=== PATIENT | male | born 1950 | race African-American/Black ===

== ENCOUNTER 2017-06-15 00:42 | Emergency (ER) | payer MEDICARE, MEDICAID ==
[~2017-06-15] VITALS: Ht 182.9 cm; Wt 105.0 kg
[~2017-06-15 00:42] MED LIST: ACET-2178 PO; AMLO2.5T45 PO; CHOL100046 PO; CLON0.1T PO; CLOP75TA33 PO; DOCU-138 PO; FAMO40TA70 PO; HYDR-523 PO; LOSA100T14 PO; METO-385 PO; MIRT30TA PO; TRAV2.5D EACHEYE
[2017-06-15] MEDS ORDERED: SODIUM CHLORIDE 0.9% 1,000 ML IV ONE (01:16)
[2017-06-15 01:57] LABS: BASOPHILS % 1.1 % (0.0-2.0); EOSINOPHILS % 6.6 % (0.0-5.0); HEMATOCRIT. 43.4 % (42.0-52.0); HEMOGLOBIN. 14.3 g/dL (14.0-18.0); LYMPHOCYTES % 29.1 % (20.0-50.0); MEAN CORPUSCULAR HEMOGLOBIN 26.5 pg (28.0-32.0); MEAN CORPUSCULAR VOLUME 80.3 fL (80.0-94.0); MEAN PLATELET VOLUME 8.2 fl (7.4-10.4); MONOCYTES % 12.5 % (2.0-8.0); NEUTROPHILS % 50.7 % (40.0-76.0); PLATELET 170 x1000/uL (130-400); RED CELL DISTRIBUTION WIDTH 15.4 % (11.6-14.6)
[2017-06-15 02:03] LABS: CHLORIDE 105 mEq/L (98-107)
[2017-06-15 02:05] LABS: INR 1.1; PARTIAL THROMBOPLASTIN TIME 27.3 sec (23.4-31.0)
[2017-06-15 07:05] VITALS: BP 148/89
== END 2017-06-15 07:22 ==
LOC: ER 00:42
DX: K62.5 Hemorrhage of anus and rectum (principal); K21.9 Gastro-esophageal reflux disease without esophagitis; E11.9 Type 2 diabetes mellitus without complications; I10 Essential (primary) hypertension; Z86.73 Personal history of transient ischemic attack (TIA), and cerebral infarction without residual deficits; Z79.899 Other long term (current) drug therapy
CPT/HCPCS: 36415; 80053; 83605; 85025; 85610; 85730; 86850; 86900; 86901; 99284; J7030

== ENCOUNTER 2019-10-10 10:51 | Inpatient (IN) | payer MEDICARE, MEDICAID ==
[~2019-10-10] VITALS: Ht 175.3 cm; Wt 77.1 kg
[~2019-10-10 10:51] MED LIST changes: -ACET-2178 PO; -CLON0.1T PO; -CLOP75TA33 PO; -FAMO40TA70 PO; +FERR325T23 PO; +INSU100C6 SQ; +IPRA3AMP9 NEB; -LOSA100T14 PO; +LOSA100T32 PO; +METF-414 MT; -METO-385 PO; +METO25TA6 MT; +POLY17PO3 MT; +SITA100T11 MT; +TOPUD PO
[2019-10-10 14:31] LABS: HEMATOCRIT. 30.4 % (42.0-52.0); HEMOGLOBIN. 9.5 g/dL (14.0-18.0); MEAN CORPUSCULAR HEMOGLOBIN 19.8 pg (28.0-32.0); MEAN CORPUSCULAR VOLUME 63.4 fL (80.0-94.0); MEAN PLATELET VOLUME 7.8 fl (7.4-10.4); PLATELET 558 x1000/uL (130-400); RED CELL DISTRIBUTION WIDTH 22.8 % (11.6-14.6)
[2019-10-10 14:36] LABS: CHLORIDE 102 mEq/L (98-107); PROTHROMBIN TIME 11.1 sec (9.6-11.0)
[2019-10-10 14:46] LABS: CLARITY URINE TURBID (CLEAR); COLOR URINE YELLOW (YELLOW); KETONES URINE NEGATIVE (NEGATIVE); LEUKOCYTE ESTERASE URINE TRACE (NEGATIVE); NITRITE URINE NEGATIVE (NEGATIVE); OCCULT BLOOD URINE 1+ (NEGATIVE); PROTEIN URINE NEGATIVE (NEGATIVE); SPECIFIC GRAVITY URINE 1.015 (1.005-1.030); UROBILINOGEN URINE 0.2 E.U./dL (0.2-1.0)
[2019-10-10 15:05] LABS: *AMPHETAMINES SCREEN URINE NEGATIVE (NEGATIVE); *BARBITURATES SCREEN URINE NEGATIVE (NEGATIVE); *BENZODIAZEPINES SCREEN URINE NEGATIVE (NEGATIVE); *COCAINE SCREEN URINE NEGATIVE (NEGATIVE)
[2019-10-10 15:06] LABS: CANNABINOID URINE SCREEN NEGATIVE (NEGATIVE); METHADONE URINE SCREEN NEGATIVE (NEGATIVE); OPIATES URINE SCREEN NEGATIVE (NEGATIVE); PHENCYCLIDINE URINE SCREEN NEGATIVE (NEGATIVE)
[2019-10-10 15:43] LABS: PLATELET ESTIMATE INCREASED
[2019-10-10] MEDS ORDERED: SODIUM POLYSTYRENE SULFONATE 15 G/60 ML BOT PO ONE (17:30)
[2019-10-11] MEDS ORDERED: LORAZEPAM 2MG/ML CPJ IV PRN
[2019-10-11] MEDS ORDERED: ACETAMINOPHEN 325MG TABLET PO PRN
[2019-10-11] MEDS ORDERED: ONDANSETRON HCL 4MG/2ML INJ IV PRN
[2019-10-11 01:45] VITALS: BP 103/73
[2019-10-11 04:00] VITALS: BP 119/77
[2019-10-11] MEDS ORDERED: DEXTROSE 50% WATER 50ML SYRINGE IV PRN (07:45)
[2019-10-11 07:56] LABS: BASOPHILS % 1.1 % (0.0-2.0); EOSINOPHILS % 2.3 % (0.0-5.0); HEMATOCRIT. 28.8 % (42.0-52.0); HEMOGLOBIN. 9.1 g/dL (14.0-18.0); LYMPHOCYTES % 25.2 % (20.0-50.0); MEAN CORPUSCULAR HEMOGLOBIN 19.8 pg (28.0-32.0); MEAN CORPUSCULAR VOLUME 62.9 fL (80.0-94.0); MEAN PLATELET VOLUME 6.7 fl (7.4-10.4); MONOCYTES % 9.1 % (2.0-8.0); NEUTROPHILS % 62.3 % (40.0-76.0); PLATELET 536 x1000/uL (130-400); RED BLOOD CELL COUNT 4.58 mill/uL (4.7-6.1); RED CELL DISTRIBUTION WIDTH 22.6 % (11.6-14.6)
[2019-10-11 08:00] VITALS: BP 106/70
[2019-10-11 08:04] LABS: CHLORIDE 102 mEq/L (98-107)
[2019-10-11] MEDS: BLOOD SUGAR DIAGNOSTIC STRIP TEST SCH ×4 (08:20→20:31)
[2019-10-11] MEDS: AMLODIPINE 5MG TABLET PO SCH (09:00)
[2019-10-11] MEDS: METFORMIN HCL 500MG TABLET PO SCH ×2 (09:24→18:09)
[2019-10-11] MEDS: INSULIN LISPRO 100 UNITS/ML SUBCUT SCH ×4 (09:26→20:31)
[2019-10-11 12:00] VITALS: BP 115/70
[2019-10-11] MEDS: CEFTRIAXONE 1 G PREMIX 50 ML IV SCH (15:13)
[2019-10-11] MEDS: METRONIDAZOLE 500 MG PREMIX 100 ML IV SCH (16:10)
[2019-10-11] MEDS: HYDROCODONE/ACETAMINOPHEN 5/325MG TABLET PO PRN (18:51)
[2019-10-11 20:00] VITALS: BP 95/72
[2019-10-12] VITALS: BP 131/74
[2019-10-12] MEDS: METRONIDAZOLE 500 MG PREMIX 100 ML IV SCH ×3 (00:14→15:35)
[2019-10-12 04:00] VITALS: BP 109/64
[2019-10-12 07:51] LABS: CHLORIDE 102 mEq/L (98-107)
[2019-10-12 07:57] LABS: HEMATOCRIT. 27.6 % (42.0-52.0); HEMOGLOBIN. 8.9 g/dL (14.0-18.0); MEAN CORPUSCULAR HEMOGLOBIN 20.1 pg (28.0-32.0); MEAN CORPUSCULAR VOLUME 62.6 fL (80.0-94.0); PLATELET 509 x1000/uL (130-400); RED BLOOD CELL COUNT 4.41 mill/uL (4.7-6.1); RED CELL DISTRIBUTION WIDTH 23.6 % (11.6-14.6)
[2019-10-12] MEDS: INSULIN LISPRO 100 UNITS/ML SUBCUT SCH ×4 (08:10→20:24)
[2019-10-12] MEDS: BLOOD SUGAR DIAGNOSTIC STRIP TEST SCH ×4 (08:33→20:24)
[2019-10-12 08:55] VITALS: BP 113/76
[2019-10-12] MEDS: AMLODIPINE 5MG TABLET PO SCH (09:00)
[2019-10-12] MEDS: METFORMIN HCL 500MG TABLET PO SCH ×2 (09:23→18:16)
[2019-10-12 10:37] LABS: PLATELET ESTIMATE INCREASED
[2019-10-12 12:18] VITALS: BP 109/70
[2019-10-12] MEDS: CEFTRIAXONE 1 G PREMIX 50 ML IV SCH (15:35)
[2019-10-12 16:42] VITALS: BP 108/75
[2019-10-12 20:00] VITALS: BP 122/76
[2019-10-12] MEDS: HYDROCODONE/ACETAMINOPHEN 5/325MG TABLET PO PRN (20:24)
[2019-10-13] VITALS (7 sets, daily range): BP systolic 93–157; BP diastolic 52–77
[2019-10-13] MEDS: METRONIDAZOLE 500 MG PREMIX 100 ML IV SCH ×3 (01:07→18:30)
[2019-10-13 04:44] LABS: HEMATOCRIT. 26.8 % (42.0-52.0); HEMOGLOBIN. 8.5 g/dL (14.0-18.0); MEAN CORPUSCULAR HEMOGLOBIN 20.1 pg (28.0-32.0); MEAN CORPUSCULAR VOLUME 63.3 fL (80.0-94.0); MEAN PLATELET VOLUME 8.5 fl (7.4-10.4); PLATELET 482 x1000/uL (130-400); RED BLOOD CELL COUNT 4.24 mill/uL (4.7-6.1)
[2019-10-13 04:50] LABS: CHLORIDE 102 mEq/L (98-107)
[2019-10-13] MEDS: BLOOD SUGAR DIAGNOSTIC STRIP TEST SCH ×4 (06:55→21:25)
[2019-10-13] MEDS: INSULIN LISPRO 100 UNITS/ML SUBCUT SCH ×4 (07:45→21:00)
[2019-10-13] MEDS: METFORMIN HCL 500MG TABLET PO SCH ×2 (08:45→17:39)
[2019-10-13] MEDS: AMLODIPINE 5MG TABLET PO SCH (08:46)
[2019-10-13] MEDS: HYDROCODONE/ACETAMINOPHEN 5/325MG TABLET PO PRN (11:35)
[2019-10-13 13:30] LABS: PLATELET ESTIMATE INCREASED
[2019-10-13] MEDS: METOPROLOL TARTRATE 25MG TABLET PO SCH ×2 (13:40→21:00)
[2019-10-13] MEDS ORDERED: MORPHINE SULFATE 2 MG/ML CPJ (NOT FOR IM USE) IV PRN (15:15)
[2019-10-13] MEDS: CEFTRIAXONE 1 G PREMIX 50 ML IV SCH (16:49)
[2019-10-14] VITALS (7 sets, daily range): BP systolic 101–113; BP diastolic 58–70
[2019-10-14] MEDS: METRONIDAZOLE 500 MG PREMIX 100 ML IV SCH ×3 (01:10→18:07)
[2019-10-14 06:15] LABS: HEMATOCRIT. 28.6 % (42.0-52.0); MEAN CORPUSCULAR HEMOGLOBIN 20.2 pg (28.0-32.0); MEAN CORPUSCULAR VOLUME 63.9 fL (80.0-94.0); MEAN PLATELET VOLUME 8.2 fl (7.4-10.4); PLATELET 421 x1000/uL (130-400); RED BLOOD CELL COUNT 4.47 mill/uL (4.7-6.1); RED CELL DISTRIBUTION WIDTH 23.2 % (11.6-14.6)
[2019-10-14 06:57] LABS: CHLORIDE 103 mEq/L (98-107)
[2019-10-14] MEDS: BLOOD SUGAR DIAGNOSTIC STRIP TEST SCH ×3 (07:32→18:04)
[2019-10-14] MEDS: INSULIN LISPRO 100 UNITS/ML SUBCUT SCH ×3 (07:32→17:50)
[2019-10-14] MEDS ORDERED: DOCUSATE SODIUM 250MG CAPSULE PO SCH (09:00)
[2019-10-14] MEDS: METFORMIN HCL 500MG TABLET PO SCH ×2 (09:44→18:07)
[2019-10-14] MEDS: METOPROLOL TARTRATE 25MG TABLET PO SCH (09:44)
[2019-10-14] MEDS: HYDROCODONE/ACETAMINOPHEN 5/325MG TABLET PO PRN (09:45)
[2019-10-14] MEDS: CEFTRIAXONE 1 G PREMIX 50 ML IV SCH (16:20)
[2019-10-14 16:56] LABS: PLATELET ESTIMATE INCREASED
== END 2019-10-14 21:30 | DRG 947 ==
LOC: ER 11:04 → EDBEDREQ 17:32 → EDBEDREQTM 17:32 → MICUSO 23:26 → 7WST 10-11 01:37 → 6WST 10-12 21:35
PROVIDERS: ADMIT Family Medicine Adult Medicine; ATTEND Family Medicine Adult Medicine
DX: G89.3 Neoplasm related pain (acute) (chronic) (principal); E43 Unspecified severe protein-calorie malnutrition; C18.6 Malignant neoplasm of descending colon; E87.1 Hypo-osmolality and hyponatremia; I69.351 Hemiplegia and hemiparesis following cerebral infarction affecting right dominant side; B19.20 Unspecified viral hepatitis C without hepatic coma; D72.829 Elevated white blood cell count, unspecified; E11.9 Type 2 diabetes mellitus without complications; Z66 Do not resuscitate; R00.0 Tachycardia, unspecified; I49.3 Ventricular premature depolarization; D50.9 Iron deficiency anemia, unspecified; D47.3 Essential (hemorrhagic) thrombocythemia; F03.90 Unspecified dementia, unspecified severity, without behavioral disturbance, psychotic disturbance, mood disturbance, and anxiety; E87.5 Hyperkalemia; K21.9 Gastro-esophageal reflux disease without esophagitis; I10 Essential (primary) hypertension; Z79.4 Long term (current) use of insulin; Z68.25 Body mass index [BMI] 25.0-25.9, adult; Z79.899 Other long term (current) drug therapy; Z03.818 Encounter for observation for suspected exposure to other biological agents ruled out; Z74.01 Bed confinement status
CPT/HCPCS: 36415; 71045; 74176; 76870; 80048; 80053; 80305; 81003; 82140; 82248; 82378; 82962; 83036; 83735; 83880; 84484; 85025; 85651; 93005; 93306; 93976; 99291; J0696; J1815; J2270; J3490; U0003-CS

== ENCOUNTER 2019-11-11 06:01 | Inpatient (IN) | payer MEDICARE, MEDICAID ==
[~2019-11-11] VITALS: Ht 180.3 cm; Wt 86.6 kg
[2019-11-11 07:03] LABS: BASOPHILS % 0.8 % (0.0-2.0); CHLORIDE 111 mEq/L (98-107); EOSINOPHILS % 1.3 % (0.0-5.0); HEMATOCRIT. 27.7 % (42.0-52.0); HEMOGLOBIN. 8.9 g/dL (14.0-18.0); LYMPHOCYTES % 21.3 % (20.0-50.0); MEAN CORPUSCULAR HEMOGLOBIN 21.4 pg (28.0-32.0); MEAN CORPUSCULAR VOLUME 66.4 fL (80.0-94.0); MEAN PLATELET VOLUME 7.5 fl (7.4-10.4); MONOCYTES % 6.9 % (2.0-8.0); NEUTROPHILS % 69.7 % (40.0-76.0); PLATELET 453 x1000/uL (130-400); RED BLOOD CELL COUNT 4.17 mill/uL (4.7-6.1); RED CELL DISTRIBUTION WIDTH 24.6 % (11.6-14.6)
[2019-11-11] MEDS ORDERED: SODIUM CHLORIDE 0.9% 1,000 ML IV ONE (07:09)
[2019-11-11] MEDS ORDERED: CEFTRIAXONE 1 G PREMIX 50 ML IV ONE (07:15)
[2019-11-11] MEDS ORDERED: SODIUM CHLORIDE 0.9% 1000ML BAG (SEPSIS BOLUS) IV ONE (07:45)
[2019-11-11 08:18] LABS: CLARITY URINE CLOUDY (CLEAR); COLOR URINE YELLOW (YELLOW); KETONES URINE NEGATIVE (NEGATIVE); LEUKOCYTE ESTERASE URINE 3+ (NEGATIVE); NITRITE URINE POSITIVE (NEGATIVE); OCCULT BLOOD URINE 2+ (NEGATIVE); PROTEIN URINE NEGATIVE (NEGATIVE); SPECIFIC GRAVITY URINE 1.011 (1.005-1.030); UROBILINOGEN URINE 0.2 E.U./dL (0.2-1.0)
[2019-11-11 10:19] LABS: PLATELET ESTIMATE INCREASED
[2019-11-11] MEDS ORDERED: ACETAMINOPHEN 325MG TABLET PO PRN (11:30)
[2019-11-11] MEDS ORDERED: ONDANSETRON HCL 4MG/2ML INJ IV PRN (11:30)
[2019-11-11] MEDS ORDERED: DEXTROSE 50% WATER 50ML SYRINGE IV PRN (11:30)
[2019-11-11] MEDS ORDERED: PIPERACILLIN/TAZ 3.375G PREMIX 50 ML IV NR (12:25)
[2019-11-11] MEDS: SODIUM CHLORIDE 0.9% 1,000 ML IV SCH (12:35)
[2019-11-11] MEDS ORDERED: PIPERACILLIN/TAZOBACTAM 3.375 G in DEXT 5% WATER 100 ML IV SCH (18:00)
[2019-11-11] MEDS: BLOOD SUGAR DIAGNOSTIC STRIP TEST SCH ×2 (18:29→18:33)
[2019-11-11] MEDS: INSULIN LISPRO 100 UNITS/ML SUBCUT SCH ×3 (18:29→21:00)
[2019-11-12] MEDS: BLOOD SUGAR DIAGNOSTIC STRIP TEST SCH ×5 (00:19→21:46)
[2019-11-12 01:10] VITALS: BP 121/79
[2019-11-12 01:55] VITALS: BP 121/79
[2019-11-12] MEDS ORDERED: METF-414 MT (02:51)
[2019-11-12] MEDS ORDERED: CLON0.1T MT (02:52)
[2019-11-12] MEDS ORDERED: TRAV2.5D EACHEYE (02:54)
[2019-11-12 03:02] VITALS: BP 121/79
[2019-11-12 04:00] VITALS: BP 132/78
[2019-11-12] MEDS: SODIUM CHLORIDE 0.9% 1,000 ML IV SCH (04:27)
[2019-11-12] MEDS: PIPERACILLIN/TAZOBACTAM 3.375 G in DEXT 5% WATER 100 ML IV SCH ×4 (04:27→21:50)
[2019-11-12 05:49] LABS: CHLORIDE 119 mEq/L (98-107)
[2019-11-12 06:01] LABS: LDL CHOLESTEROL 76 mg/dL (5-100)
[2019-11-12 06:03] LABS: HDL CHOLESTEROL 32 mg/dL (40-59); TOTAL IRON BINDING CAPACITY 155 ug/dL (250-450)
[2019-11-12 06:14] LABS: VITAMIN B12 SERUM 821 pg/mL (211-911)
[2019-11-12 06:25] LABS: HEMOGLOBIN. 7.7 g/dL (14.0-18.0); MEAN CORPUSCULAR HEMOGLOBIN 21.2 pg (28.0-32.0); MEAN CORPUSCULAR VOLUME 66.3 fL (80.0-94.0); MEAN PLATELET VOLUME 8.2 fl (7.4-10.4); PLATELET 428 x1000/uL (130-400); RED BLOOD CELL COUNT 3.62 mill/uL (4.7-6.1); RED CELL DISTRIBUTION WIDTH 24.1 % (11.6-14.6)
[2019-11-12 08:00] VITALS: BP 114/72
[2019-11-12] MEDS: INSULIN LISPRO 100 UNITS/ML SUBCUT SCH ×4 (08:10→21:00)
[2019-11-12] MEDS ORDERED: FERROUS SULFATE 325MG TABLET PO SCH (11:15)
[2019-11-12] MEDS ORDERED: POTASSIUM CHLORIDE 20MEQ TABLET SR PO NR (11:15)
[2019-11-12] MEDS: MAGNESIUM CITRATE 300ML SOLUTION PO SCH ×2 (16:46→17:35)
[2019-11-12] MEDS ORDERED: ERYTHROMYCIN 250MG TABLET PO SCH (18:00)
[2019-11-12] MEDS: NEOMYCIN 500MG TABLET PO SCH ×3 (18:10→21:53)
[2019-11-12] MEDS: ERYTHROMYCIN 250MG CAPSULE DR PO SCH ×3 (18:11→21:54)
[2019-11-12 20:00] VITALS: BP 115/73
[2019-11-12 22:30] LABS: PLATELET ESTIMATE INCREASED
[2019-11-13] VITALS: BP_SYST 114; BP_SYST 159; BP_DIAS 102; BP_DIAS 71
[2019-11-13 04:00] VITALS: BP 112/56
[2019-11-13] MEDS: PIPERACILLIN/TAZOBACTAM 3.375 G in DEXT 5% WATER 100 ML IV SCH ×4 (04:18→21:35)
[2019-11-13 06:50] LABS: CHLORIDE 119 mEq/L (98-107)
[2019-11-13 06:53] LABS: HEMATOCRIT. 23.7 % (42.0-52.0); HEMOGLOBIN. 7.5 g/dL (14.0-18.0); MEAN CORPUSCULAR VOLUME 66.4 fL (80.0-94.0); MEAN PLATELET VOLUME 7.3 fl (7.4-10.4); PLATELET 423 x1000/uL (130-400); RED BLOOD CELL COUNT 3.57 mill/uL (4.7-6.1); RED CELL DISTRIBUTION WIDTH 23.7 % (11.6-14.6)
[2019-11-13] MEDS: INSULIN LISPRO 100 UNITS/ML SUBCUT SCH ×4 (07:04→22:20)
[2019-11-13] MEDS ORDERED: BUPIVACAINE HCL 0.5% (5MG/ML) 50ML ONE (07:46)
[2019-11-13] MEDS ORDERED: SKIN ADHESIVE 0.7 GM EA TOP ONE (07:46)
[2019-11-13] MEDS ORDERED: BACITRACIN 50,000 UNITS/VIAL ONE ×2 (07:46→10:09)
[2019-11-13 07:55] VITALS: BP 118/72
[2019-11-13] MEDS: BLOOD SUGAR DIAGNOSTIC STRIP TEST SCH ×4 (08:14→21:35)
[2019-11-13] MEDS ORDERED: FENTANYL CITRATE/PF 50MCG/ML 2ML VIAL ONE (08:46)
[2019-11-13] MEDS ORDERED: PROPOFOL 200MG/20ML VIAL IV ONE (08:46)
[2019-11-13] MEDS ORDERED: MIDAZOLAM HCL 2 MG/2 ML VIAL ONE (08:46)
[2019-11-13] MEDS ORDERED: DEXAMETHASONE 4MG/ML 1ML VIAL ONE (08:47)
[2019-11-13] MEDS ORDERED: EPHEDRINE SULFATE 50MG/ML VIAL ONE (08:47)
[2019-11-13] MEDS ORDERED: ROCURONIUM BROMIDE 10MG/ML VIAL 5ML IV ONE (08:57)
[2019-11-13] MEDS ORDERED: SUCCINYLCHOLINE CHLORIDE 200MG/10ML IV ONE (08:57)
[2019-11-13] MEDS ORDERED: PHENYLEPHRINE HCL 10 MG/ML 1ML (IV VIAL) IV ONE (08:59)
[2019-11-13] MEDS ORDERED: POTASSIUM CHLORIDE INJ 40 MEQ in DEXT 5% WATER 250 ML IV ONE (09:00)
[2019-11-13] MEDS ORDERED: ACETAMINOPHEN 650MG SUPP PR PRN (09:00)
[2019-11-13 09:24] LABS: PLATELET ESTIMATE INCREASED
[2019-11-13] MEDS ORDERED: ONDANSETRON HCL 4MG/2ML INJ ONE (10:12)
[2019-11-13] MEDS: FERROUS SULFATE 300MG/5ML UDC PO SCH ×3 (12:50→17:40)
[2019-11-13] MEDS: DEXT 5%/0.45% NACL KCL 20MEQ/L 1,000 ML IV SCH ×2 (15:32→20:29)
[2019-11-13] MEDS: FAMOTIDINE 20MG/2ML VIAL IV SCH (15:32)
[2019-11-13 16:14] LABS: CREATINE KINASE 53 IU/L (39-308)
[2019-11-13 16:15] LABS: CHLORIDE 122 mEq/L (98-107)
[2019-11-13 16:24] LABS: HEMATOCRIT. 34.1 % (42.0-52.0); MEAN CORPUSCULAR HEMOGLOBIN 23.5 pg (28.0-32.0); MEAN CORPUSCULAR VOLUME 73.1 fL (80.0-94.0); MEAN PLATELET VOLUME 7.6 fl (7.4-10.4); PLATELET 438 x1000/uL (130-400); RED BLOOD CELL COUNT 4.67 mill/uL (4.7-6.1); RED CELL DISTRIBUTION WIDTH 25.7 % (11.6-14.6)
[2019-11-13 16:30] VITALS: BP 124/80
[2019-11-13] MEDS ORDERED: METOPROLOL TARTRATE 5MG/5ML VIAL IV NR (16:51)
[2019-11-13] MEDS: MORPHINE SULFATE 2 MG/ML CPJ (NOT FOR IM USE) IV PRN ×2 (16:54→22:19)
[2019-11-13 17:15] LABS: PLATELET ESTIMATE NORMAL
[2019-11-13] MEDS ORDERED: POTASSIUM CHLORIDE 20MEQ TABLET SR PO SCH (18:00)
[2019-11-13] MEDS: SODIUM CHLORIDE 0.9% 250 ML IV NR ×2 (18:08→20:28)
[2019-11-13 20:57] VITALS: BP 113/79
[2019-11-14 00:47] VITALS: BP 126/80
[2019-11-14] MEDS: MORPHINE SULFATE 2 MG/ML CPJ (NOT FOR IM USE) IV PRN ×2 (02:05→05:58)
[2019-11-14 04:00] VITALS: BP 122/80
[2019-11-14] MEDS: PIPERACILLIN/TAZOBACTAM 3.375 G in DEXT 5% WATER 100 ML IV SCH ×4 (04:37→21:09)
[2019-11-14 05:47] LABS: CHLORIDE 121 mEq/L (98-107)
[2019-11-14] MEDS: DEXT 5%/0.45% NACL KCL 20MEQ/L 1,000 ML IV SCH (06:05)
[2019-11-14 06:19] LABS: HEMATOCRIT. 30.9 % (42.0-52.0); HEMOGLOBIN. 9.9 g/dL (14.0-18.0); MEAN CORPUSCULAR HEMOGLOBIN 23.1 pg (28.0-32.0); MEAN CORPUSCULAR VOLUME 72.4 fL (80.0-94.0); MEAN PLATELET VOLUME 7.7 fl (7.4-10.4); PLATELET 332 x1000/uL (130-400); RED BLOOD CELL COUNT 4.27 mill/uL (4.7-6.1); RED CELL DISTRIBUTION WIDTH 26.1 % (11.6-14.6)
[2019-11-14] MEDS: BLOOD SUGAR DIAGNOSTIC STRIP TEST SCH ×4 (06:46→20:21)
[2019-11-14 08:05] VITALS: BP 106/67
[2019-11-14] MEDS: FERROUS SULFATE 300MG/5ML UDC PO SCH ×3 (08:54→18:14)
[2019-11-14] MEDS: INSULIN LISPRO 100 UNITS/ML SUBCUT SCH ×4 (08:54→21:12)
[2019-11-14] MEDS: FAMOTIDINE 20MG/2ML VIAL IV SCH (08:55)
[2019-11-14 10:29] LABS: BG BASE EXCESS -8.1 mmol/L (-2.0-2.0); BG CARBOXYHEMOGLOBIN 0.6 % (0.5-1.5); BG DEOXYHEMOGLOBIN 4.7 % (0.0-5.0); BG FRACTION INSPIRED OXYGEN 21; BG HCO3 ACT 16.1 mmol/L (22.0-26.0); BG METHEMOGLOBIN 0.3 % (0.0-1.5); BG OXYGEN SATURATION 95.3 % (92.0-98.5); BG OXYHEMOGLOBIN 94.4 % (94.0-97.0); BG PCO2 28.5 mmHg (35.0-45.0); BG PH 7.369 (7.350-7.450); BG PO2 79.5 mmHg (75.0-100.0); BG SAMPLE SITE RIGHT RADIAL; BG TOTAL HEMOGLOBIN 9.8 g/dL (12.0-18.0); BG VENT MODE ROOM AIR
[2019-11-14 10:45] LABS: PLATELET ESTIMATE NORMAL
[2019-11-14] MEDS ORDERED: METOPROLOL TARTRATE 5MG/5ML VIAL IV PRN (10:45)
[2019-11-14] MEDS ORDERED: CEPH-569 MT (11:17)
[2019-11-14 12:05] VITALS: BP 108/67
[2019-11-14] MEDS: DEXT 5%/0.45% NACL 1000ML 1,000 ML IV SCH ×2 (12:05→23:28)
[2019-11-14] MEDS: MORPHINE SULFATE 4 MG/ML CPJ (NOT FOR IM USE) IV PRN ×2 (12:23→16:02)
[2019-11-14 16:00] VITALS: BP 101/60
[2019-11-14 20:00] VITALS: BP 96/64
[2019-11-15] VITALS: BP 97/61
[2019-11-15] MEDS: PIPERACILLIN/TAZOBACTAM 3.375 G in DEXT 5% WATER 100 ML IV SCH ×4 (03:58→21:00)
[2019-11-15 04:00] VITALS: BP 110/63
[2019-11-15] MEDS: BLOOD SUGAR DIAGNOSTIC STRIP TEST SCH ×4 (06:47→20:44)
[2019-11-15 07:18] LABS: CHLORIDE 120 mEq/L (98-107)
[2019-11-15 07:38] LABS: BASOPHILS % 0.2 % (0.0-2.0); HEMATOCRIT. 27.4 % (42.0-52.0); HEMOGLOBIN. 8.7 g/dL (14.0-18.0); LYMPHOCYTES % 17.2 % (20.0-50.0); MEAN CORPUSCULAR HEMOGLOBIN 22.9 pg (28.0-32.0); MEAN CORPUSCULAR VOLUME 71.8 fL (80.0-94.0); MEAN PLATELET VOLUME 7.8 fl (7.4-10.4); MONOCYTES % 3.8 % (2.0-8.0); NEUTROPHILS % 78.8 % (40.0-76.0); PLATELET 248 x1000/uL (130-400); RED BLOOD CELL COUNT 3.81 mill/uL (4.7-6.1); RED CELL DISTRIBUTION WIDTH 25.6 % (11.6-14.6)
[2019-11-15 08:00] VITALS: BP 100/56
[2019-11-15] MEDS: FAMOTIDINE 20MG/2ML VIAL IV SCH (09:05)
[2019-11-15] MEDS: FERROUS SULFATE 300MG/5ML UDC PO SCH ×3 (09:05→16:49)
[2019-11-15] MEDS: INSULIN LISPRO 100 UNITS/ML SUBCUT SCH ×4 (09:07→20:52)
[2019-11-15 12:00] VITALS: BP 131/82
[2019-11-15] MEDS: DEXT 5%/0.45% NACL 1000ML 1,000 ML IV SCH (12:55)
[2019-11-15] MEDS: MORPHINE SULFATE 4 MG/ML CPJ (NOT FOR IM USE) IV PRN ×2 (13:42→20:53)
[2019-11-15 16:00] VITALS: BP 118/64
[2019-11-15] MEDS: IRON SUCROSE COMPLEX 100 MG/5 ML ML IV SCH (20:31)
[2019-11-15 20:32] VITALS: BP 116/72
[2019-11-16 00:29] VITALS: BP 113/61
[2019-11-16] MEDS: DEXT 5%/0.45% NACL 1000ML 1,000 ML IV SCH ×2 (01:56→15:39)
[2019-11-16] MEDS: PIPERACILLIN/TAZOBACTAM 3.375 G in DEXT 5% WATER 100 ML IV SCH ×4 (03:58→21:11)
[2019-11-16 04:00] VITALS: BP 130/77
[2019-11-16] MEDS: BLOOD SUGAR DIAGNOSTIC STRIP TEST SCH ×4 (06:39→21:10)
[2019-11-16 07:13] LABS: BASOPHILS % 0.2 % (0.0-2.0); EOSINOPHILS % 0.6 % (0.0-5.0); HEMATOCRIT. 28.3 % (42.0-52.0); HEMOGLOBIN. 9.2 g/dL (14.0-18.0); MEAN CORPUSCULAR HEMOGLOBIN 23.3 pg (28.0-32.0); MEAN CORPUSCULAR VOLUME 71.6 fL (80.0-94.0); MEAN PLATELET VOLUME 8.4 fl (7.4-10.4); MONOCYTES % 2.7 % (2.0-8.0); NEUTROPHILS % 81.5 % (40.0-76.0); PLATELET 226 x1000/uL (130-400); RED BLOOD CELL COUNT 3.95 mill/uL (4.7-6.1); RED CELL DISTRIBUTION WIDTH 26.4 % (11.6-14.6)
[2019-11-16 07:22] LABS: CHLORIDE 120 mEq/L (98-107)
[2019-11-16] MEDS: INSULIN LISPRO 100 UNITS/ML SUBCUT SCH ×4 (07:50→21:00)
[2019-11-16 08:00] VITALS: BP 130/55
[2019-11-16] MEDS: FAMOTIDINE 20MG/2ML VIAL IV SCH (09:36)
[2019-11-16] MEDS: MORPHINE SULFATE 4 MG/ML CPJ (NOT FOR IM USE) IV PRN (10:32)
[2019-11-16 12:00] VITALS: BP 112/60
[2019-11-16 16:00] VITALS: BP 105/62
[2019-11-16] MEDS: MORPHINE SULFATE 2 MG/ML CPJ (NOT FOR IM USE) IV PRN (17:56)
[2019-11-16] MEDS: IRON SUCROSE COMPLEX 100 MG/5 ML ML IV SCH (19:58)
[2019-11-16 20:00] VITALS: BP 109/63
[2019-11-17] MEDS: MORPHINE SULFATE 2 MG/ML CPJ (NOT FOR IM USE) IV PRN ×2 (00:16→05:05)
[2019-11-17] MEDS: DEXT 5%/0.45% NACL 1000ML 1,000 ML IV SCH ×2 (00:21→17:15)
[2019-11-17 00:57] VITALS: BP 124/74
[2019-11-17 04:00] VITALS: BP 133/78
[2019-11-17] MEDS: BLOOD SUGAR DIAGNOSTIC STRIP TEST SCH ×4 (06:16→21:00)
[2019-11-17] MEDS: INSULIN LISPRO 100 UNITS/ML SUBCUT SCH ×4 (06:16→21:00)
[2019-11-17 06:55] LABS: HEMATOCRIT. 31.4 % (42.0-52.0); MEAN CORPUSCULAR HEMOGLOBIN 23.1 pg (28.0-32.0); MEAN CORPUSCULAR VOLUME 72.4 fL (80.0-94.0); MEAN PLATELET VOLUME 8.6 fl (7.4-10.4); PLATELET 259 x1000/uL (130-400); RED BLOOD CELL COUNT 4.34 mill/uL (4.7-6.1); RED CELL DISTRIBUTION WIDTH 26.4 % (11.6-14.6)
[2019-11-17 08:00] VITALS: BP 134/85
[2019-11-17] MEDS: FAMOTIDINE 20MG/2ML VIAL IV SCH (09:37)
[2019-11-17] MEDS: MORPHINE SULFATE 4 MG/ML CPJ (NOT FOR IM USE) IV PRN (10:10)
[2019-11-17 12:00] VITALS: BP 154/85
[2019-11-17 12:13] LABS: PLATELET ESTIMATE NORMAL
[2019-11-17 16:00] VITALS: BP 155/89
[2019-11-17 20:26] VITALS: BP 149/83
[2019-11-18] MEDS: MORPHINE SULFATE 4 MG/ML CPJ (NOT FOR IM USE) IV PRN ×2 (00:17→05:46)
[2019-11-18] MEDS: IRON SUCROSE COMPLEX 100 MG/5 ML ML IV SCH (00:17)
[2019-11-18 00:54] VITALS: BP 144/64
[2019-11-18 04:00] VITALS: BP 165/99
[2019-11-18] MEDS: DEXT 5%/0.45% NACL 1000ML 1,000 ML IV SCH ×2 (05:50→10:03)
[2019-11-18] MEDS: BLOOD SUGAR DIAGNOSTIC STRIP TEST SCH ×4 (06:28→21:00)
[2019-11-18] MEDS: FERROUS SULFATE 300MG/5ML UDC PO SCH ×3 (06:35→17:50)
[2019-11-18] MEDS: INSULIN LISPRO 100 UNITS/ML SUBCUT SCH ×4 (06:35→21:00)
[2019-11-18 08:00] VITALS: BP 153/94
[2019-11-18 08:25] LABS: BASOPHILS % 0.4 % (0.0-2.0); HEMATOCRIT. 30.1 % (42.0-52.0); HEMOGLOBIN. 9.7 g/dL (14.0-18.0); LYMPHOCYTES % 14.7 % (20.0-50.0); MEAN CORPUSCULAR HEMOGLOBIN 23.6 pg (28.0-32.0); MEAN CORPUSCULAR VOLUME 72.7 fL (80.0-94.0); MEAN PLATELET VOLUME 8.4 fl (7.4-10.4); MONOCYTES % 8.1 % (2.0-8.0); NEUTROPHILS % 75.8 % (40.0-76.0); PLATELET 359 x1000/uL (130-400); RED BLOOD CELL COUNT 4.13 mill/uL (4.7-6.1); RED CELL DISTRIBUTION WIDTH 26.3 % (11.6-14.6)
[2019-11-18 08:28] LABS: CHLORIDE 121 mEq/L (98-107)
[2019-11-18] MEDS: FAMOTIDINE 20MG/2ML VIAL IV SCH (10:03)
[2019-11-18] MEDS: ONDANSETRON HCL 4MG/2ML INJ IV PRN ×2 (10:03→22:35)
[2019-11-18 12:25] VITALS: BP 151/85
[2019-11-18] MEDS ORDERED: POTASSIUM CHLORIDE INJ 40 MEQ in DEXT 5% WATER 250 ML IV SCH (14:00)
[2019-11-18 16:11] VITALS: BP 159/91
[2019-11-18 20:45] VITALS: BP 169/92
[2019-11-19 00:10] VITALS: BP 155/97
[2019-11-19] MEDS: MORPHINE SULFATE 2 MG/ML CPJ (NOT FOR IM USE) IV PRN ×3 (04:07→16:26)
[2019-11-19 04:50] VITALS: BP 137/78
[2019-11-19 05:35] LABS: CHLORIDE 121 mEq/L (98-107)
[2019-11-19] MEDS: FERROUS SULFATE 300MG/5ML UDC PO SCH ×3 (07:05→16:22)
[2019-11-19] MEDS: BLOOD SUGAR DIAGNOSTIC STRIP TEST SCH ×4 (07:05→21:00)
[2019-11-19] MEDS: INSULIN LISPRO 100 UNITS/ML SUBCUT SCH ×4 (07:50→21:29)
[2019-11-19 08:16] VITALS: BP 168/92
[2019-11-19 08:53] LABS: BASOPHILS % 0.2 % (0.0-2.0); EOSINOPHILS % 1.5 % (0.0-5.0); HEMATOCRIT. 29.4 % (42.0-52.0); HEMOGLOBIN. 9.4 g/dL (14.0-18.0); LYMPHOCYTES % 8.7 % (20.0-50.0); MEAN CORPUSCULAR HEMOGLOBIN 22.9 pg (28.0-32.0); MEAN CORPUSCULAR VOLUME 71.5 fL (80.0-94.0); MEAN PLATELET VOLUME 7.6 fl (7.4-10.4); MONOCYTES % 8.9 % (2.0-8.0); NEUTROPHILS % 80.7 % (40.0-76.0); PLATELET 356 x1000/uL (130-400); RED BLOOD CELL COUNT 4.11 mill/uL (4.7-6.1); RED CELL DISTRIBUTION WIDTH 26.2 % (11.6-14.6)
[2019-11-19] MEDS: ONDANSETRON HCL 4MG/2ML INJ IV PRN (09:07)
[2019-11-19] MEDS: FAMOTIDINE 20MG/2ML VIAL IV SCH (09:09)
[2019-11-19 12:14] VITALS: BP 158/88
[2019-11-19] MEDS: DEXT 5%/0.45% NACL 1000ML 1,000 ML IV SCH (12:22)
[2019-11-19 16:13] VITALS: BP 156/92
[2019-11-19 20:44] VITALS: BP 133/90
[2019-11-20] VITALS (7 sets, daily range): BP systolic 116–147; BP diastolic 70–95
[2019-11-20] MEDS: DEXT 5%/0.45% NACL 1000ML 1,000 ML IV SCH (03:46)
[2019-11-20] MEDS: BLOOD SUGAR DIAGNOSTIC STRIP TEST SCH ×4 (06:27→20:53)
[2019-11-20 06:40] LABS: CHLORIDE 120 mEq/L (98-107)
[2019-11-20] MEDS: INSULIN LISPRO 100 UNITS/ML SUBCUT SCH ×5 (06:44→21:01)
[2019-11-20 07:03] LABS: BASOPHILS % 0.3 % (0.0-2.0); EOSINOPHILS % 2.9 % (0.0-5.0); HEMATOCRIT. 29.4 % (42.0-52.0); HEMOGLOBIN. 9.2 g/dL (14.0-18.0); LYMPHOCYTES % 13.4 % (20.0-50.0); MEAN CORPUSCULAR HEMOGLOBIN 22.8 pg (28.0-32.0); MEAN CORPUSCULAR VOLUME 72.7 fL (80.0-94.0); MEAN PLATELET VOLUME 8.6 fl (7.4-10.4); MONOCYTES % 8.9 % (2.0-8.0); NEUTROPHILS % 74.5 % (40.0-76.0); PLATELET 316 x1000/uL (130-400); RED BLOOD CELL COUNT 4.05 mill/uL (4.7-6.1); RED CELL DISTRIBUTION WIDTH 25.8 % (11.6-14.6)
[2019-11-20] MEDS: FAMOTIDINE 20MG/2ML VIAL IV SCH (09:11)
[2019-11-20] MEDS: FERROUS SULFATE 300MG/5ML UDC PO SCH ×3 (09:13→16:56)
[2019-11-20] MEDS ORDERED: POTASSIUM CHLORIDE 20MEQ/PACKET PO NR (11:00)
[2019-11-20] MEDS: DEXTROSE 5% WATER 1,000 ML IV SCH (13:00)
[2019-11-21] VITALS (7 sets, daily range): BP systolic 115–142; BP diastolic 67–80
[2019-11-21] MEDS: DEXTROSE 5% WATER 1,000 ML IV SCH ×2 (03:22→20:16)
[2019-11-21 06:00] LABS: BASOPHILS % 0.3 % (0.0-2.0); EOSINOPHILS % 3.9 % (0.0-5.0); HEMATOCRIT. 27.2 % (42.0-52.0); HEMOGLOBIN. 8.6 g/dL (14.0-18.0); LYMPHOCYTES % 10.7 % (20.0-50.0); MEAN CORPUSCULAR HEMOGLOBIN 22.8 pg (28.0-32.0); MEAN CORPUSCULAR VOLUME 71.9 fL (80.0-94.0); MEAN PLATELET VOLUME 7.9 fl (7.4-10.4); MONOCYTES % 9.4 % (2.0-8.0); NEUTROPHILS % 75.7 % (40.0-76.0); PLATELET 274 x1000/uL (130-400); RED BLOOD CELL COUNT 3.78 mill/uL (4.7-6.1); RED CELL DISTRIBUTION WIDTH 26.3 % (11.6-14.6)
[2019-11-21 06:12] LABS: CHLORIDE 118 mEq/L (98-107)
[2019-11-21] MEDS: BLOOD SUGAR DIAGNOSTIC STRIP TEST SCH ×4 (06:16→20:24)
[2019-11-21 06:24] LABS: PHOSPHORUS 1.9 mg/dL (2.5-4.9)
[2019-11-21] MEDS: FERROUS SULFATE 300MG/5ML UDC PO SCH ×3 (07:50→17:40)
[2019-11-21] MEDS: FAMOTIDINE 20MG/2ML VIAL IV SCH (08:00)
[2019-11-21] MEDS: INSULIN LISPRO 100 UNITS/ML SUBCUT SCH ×4 (08:12→20:24)
[2019-11-21] MEDS ORDERED: POTASSIUM CHLORIDE 20MEQ/PACKET PO NR (11:30)
[2019-11-21] MEDS ORDERED: POTASSIUM PHOS,M-BASIC-D-BASIC 10 MMOL in DEXT 5% WATER 246.6667 ML IV NR (12:00)
[2019-11-21] MEDS ORDERED: CEFEPIME 1,000 MG in DEXTROSE 5% WATER 50 ML IV SCH (14:00)
[2019-11-21 18:15] LABS: PHOSPHORUS 2.5 mg/dL (2.5-4.9)
[2019-11-21] MEDS ORDERED: METRONIDAZOLE 500 MG PREMIX 100 ML IV SCH (21:00)
[2019-11-22] VITALS (12 sets, daily range): BP systolic 122–150; BP diastolic 63–106
[2019-11-22] MEDS: CEFEPIME 1,000 MG in DEXTROSE 5% WATER 50 ML IV SCH ×2 (03:08→13:17)
[2019-11-22] MEDS: MORPHINE SULFATE 2 MG/ML CPJ (NOT FOR IM USE) IV PRN ×2 (03:08→23:32)
[2019-11-22 06:45] LABS: CHLORIDE 113 mEq/L (98-107)
[2019-11-22 06:52] LABS: PHOSPHORUS 2.4 mg/dL (2.5-4.9)
[2019-11-22 07:27] LABS: HEMATOCRIT 29.3 % (42.0-52.0); MEAN CORPUSCULAR HEMOGLOBIN 22.3 pg (28.0-32.0); MEAN CORPUSCULAR VOLUME 72.8 fL (80.0-94.0); PLATELET 247 x1000/uL (130-400); RED BLOOD CELL COUNT 4.03 mill/uL (4.7-6.1); RED CELL DISTRIBUTION WIDTH 26.7 % (11.6-14.6)
[2019-11-22] MEDS: BLOOD SUGAR DIAGNOSTIC STRIP TEST SCH ×5 (07:37→21:00)
[2019-11-22] MEDS: INSULIN LISPRO 100 UNITS/ML SUBCUT SCH ×4 (08:55→21:00)
[2019-11-22] MEDS: FAMOTIDINE 20MG/2ML VIAL IV SCH (08:56)
[2019-11-22] MEDS: FERROUS SULFATE 300MG/5ML UDC PO SCH ×3 (08:56→18:00)
[2019-11-22] MEDS: METRONIDAZOLE 500 MG PREMIX 100 ML IV SCH ×2 (08:59→22:08)
[2019-11-22] MEDS: SODIUM CHLORIDE 0.45% 1,000 ML IV SCH ×2 (10:39→23:33)
[2019-11-22] MEDS ORDERED: POTASSIUM PHOS,M-BASIC-D-BASIC 20 MMOL in DEXT 5% WATER 243.3333 ML IV NR (11:30)
[2019-11-22] MEDS ORDERED: MAGNESIUM 2 G PREMIX 50 ML IV NR (11:30)
[2019-11-23] VITALS (12 sets, daily range): BP systolic 128–164; BP diastolic 69–103
[2019-11-23] MEDS: CEFEPIME 1,000 MG in DEXTROSE 5% WATER 50 ML IV SCH ×2 (01:24→15:28)
[2019-11-23 06:04] LABS: CHLORIDE 112 mEq/L (98-107)
[2019-11-23 06:05] LABS: INR 1.1; PARTIAL THROMBOPLASTIN TIME 24.4 sec (23.4-31.0); PROTHROMBIN TIME 11.6 sec (9.6-11.0)
[2019-11-23] MEDS: MORPHINE SULFATE 2 MG/ML CPJ (NOT FOR IM USE) IV PRN ×2 (06:44→17:29)
[2019-11-23] MEDS: BLOOD SUGAR DIAGNOSTIC STRIP TEST SCH ×4 (07:30→21:37)
[2019-11-23] MEDS: FERROUS SULFATE 300MG/5ML UDC PO SCH (08:00)
[2019-11-23] MEDS: METRONIDAZOLE 500 MG PREMIX 100 ML IV SCH ×2 (08:54→21:30)
[2019-11-23] MEDS: INSULIN LISPRO 100 UNITS/ML SUBCUT SCH ×4 (08:56→21:31)
[2019-11-23 09:48] LABS: EOSINOPHILS % 2.8 % (0.0-5.0); HEMATOCRIT. 27.4 % (42.0-52.0); HEMOGLOBIN. 8.8 g/dL (14.0-18.0); LYMPHOCYTES % 10.1 % (20.0-50.0); MEAN CORPUSCULAR VOLUME 72.1 fL (80.0-94.0); MEAN PLATELET VOLUME 8.5 fl (7.4-10.4); MONOCYTES % 6.3 % (2.0-8.0); NEUTROPHILS % 79.8 % (40.0-76.0); PLATELET 297 x1000/uL (130-400); RED CELL DISTRIBUTION WIDTH 26.5 % (11.6-14.6)
[2019-11-23] MEDS: FAMOTIDINE 20MG/2ML VIAL IV SCH (11:18)
[2019-11-23] MEDS: ASCORBIC ACID 500 MG TABLET PO SCH ×2 (12:55→21:30)
[2019-11-23] MEDS: SODIUM CHLORIDE 0.45% 1,000 ML IV SCH (12:56)
[2019-11-23] MEDS: FERROUS SULFATE 325MG TABLET PO SCH ×2 (12:56→17:28)
[2019-11-24] VITALS (12 sets, daily range): BP systolic 124–151; BP diastolic 62–84
[2019-11-24] MEDS: SODIUM CHLORIDE 0.45% 1,000 ML IV SCH ×2 (01:19→15:35)
[2019-11-24] MEDS: CEFEPIME 1,000 MG in DEXTROSE 5% WATER 50 ML IV SCH ×2 (01:19→13:10)
[2019-11-24] MEDS ORDERED: MORPHINE SULFATE 2 MG/ML CPJ (NOT FOR IM USE) IV PRN (01:30)
[2019-11-24] MEDS: INSULIN LISPRO 100 UNITS/ML SUBCUT SCH ×3 (08:00→17:50)
[2019-11-24] MEDS: BLOOD SUGAR DIAGNOSTIC STRIP TEST SCH ×3 (08:15→17:50)
[2019-11-24] MEDS: FAMOTIDINE 20MG/2ML VIAL IV SCH (08:17)
[2019-11-24] MEDS: FERROUS SULFATE 325MG TABLET PO SCH ×3 (08:17→17:50)
[2019-11-24] MEDS: ASCORBIC ACID 500 MG TABLET PO SCH (08:17)
[2019-11-24] MEDS: METRONIDAZOLE 500 MG PREMIX 100 ML IV SCH (08:17)
[2019-11-24 09:55] LABS: BASOPHILS % 1.1 % (0.0-2.0); EOSINOPHILS % 3.2 % (0.0-5.0); HEMATOCRIT. 25.9 % (42.0-52.0); HEMOGLOBIN. 8.2 g/dL (14.0-18.0); LYMPHOCYTES % 8.5 % (20.0-50.0); MEAN CORPUSCULAR HEMOGLOBIN 22.8 pg (28.0-32.0); MEAN CORPUSCULAR VOLUME 71.9 fL (80.0-94.0); MEAN PLATELET VOLUME 8.8 fl (7.4-10.4); MONOCYTES % 5.2 % (2.0-8.0); PLATELET 275 x1000/uL (130-400); RED CELL DISTRIBUTION WIDTH 27.1 % (11.6-14.6)
[2019-11-24 10:03] LABS: CHLORIDE 112 mEq/L (98-107)
== END 2019-11-24 20:10 | DRG 853 ==
LOC: ER 06:01 → MICUSO 07:54 → EDBEDREQ 07:57 → ENRESERV 21:05 → CANRESERV 21:05 → EDBEDREQTM 21:26 → EDBEDREQSVC 21:26 → EDBEDREQ 21:26 → 7WST 23:39 → 6WST 11-12 23:15 → 5EST 11-21 21:30
PROVIDERS: ADMIT Internal Medicine; ATTEND Internal Medicine
PROC: 0DTG0ZZ Resection of Left Large Intestine, Open Approach (ICD-10-PCS; principal; 2019-11-13)
PROC: 0WBF0ZZ Excision of Abdominal Wall, Open Approach (ICD-10-PCS; 2019-11-13)
PROC: 30233N1 Transfusion of Nonautologous Red Blood Cells into Peripheral Vein, Percutaneous Approach (ICD-10-PCS; 2019-11-13)
PROC: 02HV33Z Insertion of Infusion Device into Superior Vena Cava, Percutaneous Approach (ICD-10-PCS; 2019-11-23)
PROC: B548ZZA Ultrasonography of Superior Vena Cava, Guidance (ICD-10-PCS; 2019-11-23)
DX: A41.51 Sepsis due to Escherichia coli [E. coli] (principal); E43 Unspecified severe protein-calorie malnutrition; N17.0 Acute kidney failure with tubular necrosis; C18.9 Malignant neoplasm of colon, unspecified; D62 Acute posthemorrhagic anemia; N39.0 Urinary tract infection, site not specified; C18.6 Malignant neoplasm of descending colon; E87.0 Hyperosmolality and hypernatremia; K56.7 Ileus, unspecified; K63.3 Ulcer of intestine; Z66 Do not resuscitate; I95.9 Hypotension, unspecified; D47.3 Essential (hemorrhagic) thrombocythemia; E87.6 Hypokalemia; E11.22 Type 2 diabetes mellitus with diabetic chronic kidney disease; E11.65 Type 2 diabetes mellitus with hyperglycemia; F03.90 Unspecified dementia, unspecified severity, without behavioral disturbance, psychotic disturbance, mood disturbance, and anxiety; I12.9 Hypertensive chronic kidney disease with stage 1 through stage 4 chronic kidney disease, or unspecified chronic kidney disease; K21.9 Gastro-esophageal reflux disease without esophagitis; N18.9 Chronic kidney disease, unspecified; Z86.73 Personal history of transient ischemic attack (TIA), and cerebral infarction without residual deficits; Z79.84 Long term (current) use of oral hypoglycemic drugs; Z79.899 Other long term (current) drug therapy; Z03.818 Encounter for observation for suspected exposure to other biological agents ruled out; Z79.4 Long term (current) use of insulin; Z68.26 Body mass index [BMI] 26.0-26.9, adult
CPT/HCPCS: 36415; 36600; 71045; 74018; 76770; 76937; 80048; 80053; 80061; 81003; 82375; 82550; 82607; 82728; 82805; 82962; 83036; 83540; 83550; 83605; 83735; 84100; 84132; 84145; 84443; 84484; 85025; 85027; 85044; 86850; 86900; 86920; 87077; 87186; 88309; 88329; 92610; 93005; 94002; 96365; 99291; C1725; J0330; J0692; J0696; J1100; J1815; J2250; J2270; J2370; J2405; J2543; J2704; J3010; J3475; J3480; J3490; J7030; J7060; J7070; P9016; U0003-CS